=== PATIENT | male | born 1940 | race Caucasian/White ===

== ENCOUNTER 2016-12-26 00:03 | Emergency (ER) | payer MEDICARE, OTHER | END 2016-12-26 01:32 | disposition home or self-care (01) | LOC: ER 00:03 | DX: S43.102A Unspecified dislocation of left acromioclavicular joint, initial encounter (principal); E11.9 Type 2 diabetes mellitus without complications; I10 Essential (primary) hypertension; W06.XXXA Fall from bed, initial encounter ==